=== PATIENT | male | born 1950 | race Caucasian/White ===

== ENCOUNTER → 2016-11-10 | Outpatient (CLI) | payer BC ==
[~2016-11-10] MED LIST: LEVO150T PO; OXYC-57 PO; SIMV20TA5 PO
[2016-11-10 11:19] LABS: AST/SGOT 20 U/L (15-37); BLOOD UREA NITROGEN 19 mg/dl (7-18); CALCIUM 9.2 mg/dl (8.5-10.1); CARBON DIOXIDE 25 mmol/L (21-32); CHLORIDE 107 mmol/L (98-107); GLUCOSE 111 mg/dl (70-99); POTASSIUM 4.1 mmol/L (3.5-5.1); SODIUM 140 mmol/L (136-145)
[2016-11-10 11:30] LABS: ALT/SGPT 36 U/L (12-78); CHOLESTEROL 180 mg/dl (0-200); CHOLESTEROL/HDL RATIO 3.5; HDL CHOLESTEROL 52 mg/dl; LDL CHOLESTEROL CALCULATED 106 mg/dl; TRIGLYCERIDES 110 mg/dl (0-150); VERY LOW DENSITY LIPOPROT CALC 22 mg/dl
[2016-11-10 11:31] LABS: ESTIMATED AVERAGE GLUCOSE 111 mg/dl; HA1C FLAG Normal (Normal)
== END | disposition home or self-care (01) ==
LOC: C.LABBC 07:29
PROVIDERS: ATTEND Internal Medicine
DX: E03.9 Hypothyroidism, unspecified (principal); E78.00 Pure hypercholesterolemia, unspecified; R73.9 Hyperglycemia, unspecified

== ENCOUNTER → 2016-12-11 | Outpatient (CLI) | payer BC ==
[~2016-12-11] MED LIST changes: +OPTIRAY 320 IV PRN
--- NOTE | 2016-12-11 09:19 | DIAGNOSTIC IMAGING REPORT ---
(CHEST) THORAX WITH HISTORY: 66 years-old Male J38.01 acute Vocal fold paralysis, right . History of hypothyroidism. COMPARISON: CT soft tissue neck of same day TECHNIQUE: Multiple axial CT images of the chest were obtained following the intravenous administration of 92 mL Optiray 320. A dose lowering technique was used consistent with the principals of KLAUS. FINDINGS: No subglottic mass is identified. Thyroid is homogeneous. No pathologic adenopathy of the chest is identified. There is mild symmetric bilateral gynecomastia. Heart is normal in size without pericardial effusion. Coronary arterial calcifications are seen. There is mild mixed plaquing of the aorta and proximal great vessels. The opacified pulmonary arterial tree appears unremarkable. There is mild biapical pleural parenchymal scarring. No pneumothorax or pleural effusion. There is minimal dependent bibasilar atelectasis. There are a few subcentimeter thin-walled cysts noted within left lung. No suspicious pulmonary nodules or masses are seen. Central airways are patent. The upper abdominal structures appear unremarkable. Moderate degenerative changes are seen within the bilateral glenohumeral joints. No acute bony abnormality is identified. IMPRESSION: 1. No acute abnormality identified within the chest. 2. No subglottic or pulmonary apical mass. 3. No pathologic-appearing adenopathy. The above report was generated using voice recognition software. It may contain grammatical, syntax or spelling errors. Electronically signed by: Benedict Michelle M.D. 12/11/2016 9:18 AM Dictated Date/Time: 12/11/2016 9:12 AM
--- NOTE | 2016-12-11 09:20 | DIAGNOSTIC IMAGING REPORT ---
SOFT TISSUE NECK WITH CLINICAL HISTORY: 66 years-old Male presenting with focal cord paralysis, right. TECHNIQUE: Multidetector CT of the neck was performed after the administration of intravenous contrast. IV contrast: 93 mL of Optiray 320. A dose lowering technique was used consistent with the principles of ALARA (as low as reasonably achievable). COMPARISON: Ultrasound from 07/08/2015. CT DOSE (mGy.cm): The estimated cumulative dose is 2010.34 mGy.cm. FINDINGS: Sample Book Maker topogram: Unremarkable. Limited intracranial evaluation within normal limits. Vessels patent. Paranasal sinuses and mastoid air cells clear. No erosive changes of the foramina of the skull base. Mild degenerative changes of the lower cervical spine. Orbits normal. Parotid and submandibular glands normal. No lymphadenopathy. No suspicious enhancing mass in the nasopharynx, oropharynx, oral cavity, hypopharynx, or larynx. Focal folds symmetric and normal-appearing. No infiltration of the paraglottic or preepiglottic fat. Normal thyroid. Lung apices clear. Esophagus contains gas and fluid. IMPRESSION: Normal CT of the neck. Electronically signed by: Thony Alvarado M.D. 12/11/2016 9:19 AM Dictated Date/Time: 12/11/2016 9:11 AM
--- NOTE | 2016-12-11 09:21 | DIAGNOSTIC IMAGING REPORT ---
HEAD COMBO CLINICAL HISTORY: 11/10/16 0733 CREAK 1.20 paresthesias. Mental status change. TECHNIQUE: Pre and post contrast CT evaluation COMPARISON STUDY: None FINDINGS: Normal density characteristics of the cerebellar as well as cerebral hemispheres. Mild age-related chronic small vessel change. No abnormal postcontrast enhancement. IMPRESSION: Negative study for age. No acute process. The above report was generated using voice recognition software. It may contain grammatical, syntax or spelling errors. Electronically signed by: Rivera Webb M.D. 12/11/2016 9:19 AM Dictated Date/Time: 12/11/2016 9:16 AM
== END ==
LOC: C.CTS 08:36
DX: J38.01 Paralysis of vocal cords and larynx, unilateral (principal)